=== PATIENT | female | born 1960 | race Caucasian/White ===

== ENCOUNTER → 2018-02-11 14:42 | Outpatient (CLI) | payer MEDICARE, MEDICAID, SELFPAY ==
--- NOTE | 2018-02-11 14:47 | DI.RAD.S_ITS ---
PROCEDURE: XR KNEE RT 3V INDICATIONS: BILATERAL KNEE PAIN TECHNIQUE: 3 views of the knee were acquired. COMPARISON: [facility], , KNEE 1-2 VIEWS RIGHT, 01/28/2013, 13:18. FINDINGS: Bones: No fractures or dislocations. No suspicious bony lesions. Mild to moderate tricompartment osteoarthritis is seen. No significant patellar subluxation. Soft tissues: No joint effusion. No suspicious soft tissue calcifications. IMPRESSION: No acute right knee fracture or dislocation. Mild to moderate tricompartment osteoarthritis. Dictated by: Chicho Mishra M.D. on 02/11/2018 at 15:06 Approved by: Chicho Mishra M.D. on 02/11/2018 at 15:07
--- NOTE | 2018-02-11 14:47 | DI.RAD.S_ITS ---
PROCEDURE: XR KNEE LT 3V INDICATIONS: BILATERAL KNEE PAIN TECHNIQUE: 3 views of the knee were acquired. COMPARISON: [facility], , KNEE 1-2 VIEWS RIGHT, 01/28/2013, 13:18. FINDINGS: Bones: No fractures or dislocations. No suspicious bony lesions. Mild to moderate tricompartmental osteoarthritis is seen. No significant patellar subluxation. Soft tissues: There is trace amount of joint effusion. No suspicious soft tissue calcifications. IMPRESSION: No acute left knee fracture or dislocation. Mild to moderate compartment osteoarthritis. Trace amount of joint effusion. Dictated by: Chicho Mishra M.D. on 02/11/2018 at 15:04 Approved by: Chicho Mishra M.D. on 02/11/2018 at 15:06
== END ==
PROVIDERS: Family Provider Family Medicine; PCP Family Medicine; Visit Provider Family Medicine
DX: M25.562 Pain in left knee (principal); M25.561 Pain in right knee; M17.0 Bilateral primary osteoarthritis of knee
CPT/HCPCS: 73562

== ENCOUNTER → 2018-09-17 14:18 | Outpatient (CLI) | payer MEDICARE, MEDICAID, SELFPAY ==
[2018-09-17 15:29] LABS: Add Manual Diff / Slide Review NO; Basophils Absolute Auto 100 /uL (0-100); Basophils Percent Auto 0.7 % (0-2); Eosinophils Absolute Auto 100 /uL (0-450); Eosinophils Percent Auto 1.5 % (2-4); Hematocrit 43.8 % (36-46); Hemoglobin 14.4 g/dL (12.0-16.0); Lymphocytes Absolute Auto 2400 /uL (1100-4500); Lymphocytes Percent Auto 27.6 % (25-40); Mean Corpuscular Hemoglobin 28.4 PG (26-34); Mean Corpuscular Volume 86.2 fL (80-100); Monocytes Absolute Auto 600 /uL (0-900); Monocytes Percent Auto 7.3 % (3-14); Neutrophils Absolute Auto 5500 /uL (1500-7000); Neutrophils Percent Auto 62.9 % (50-75); Platelet Count 319 X10^3/uL (150-400); Red Blood Cell Count 5.08 X10^6/uL (4.0-5.2); Red Cell Distribution Width 13.8 % (11.6-14.8); White Blood Cell Count 8.7 X10^3/uL (4.5-11.0)
[2018-09-17 16:42] LABS: TSH w/ Reflex to FT4 1.95 uIU/mL (0.47-4.68)
[2018-09-17 18:46] LABS: Alanine Aminotransferase 18 IU/L (9-52); Albumin 4.6 g/dL (3.5-5.0); Albumin Globulin Ratio 1.2 (1.0-2.8); Alkaline Phosphatase 71 U/L (38-126); Aspartate Aminotransferase 23 IU/L (14-36); BUN Creatinine Ratio 16.3 (6-22); Bilirubin Total 0.5 mg/dL (0.2-1.3); Blood Urea Nitrogen 13 mg/dL (7-17); Calcium 9.6 mg/dL (8.4-10.2); Carbon Dioxide 22 mmol/L (22-32); Chloride 105 mmol/L (98-107); Cholesterol 215 mg/dL (140-199); Estimated Glomerular Filt Rate > 60.0 mL/min (>60); Globulin 3.7 g/dL (1.7-4.1); Glucose 82 mg/dL (70-100); HDL Cholesterol 54 mg/dL (40-60); HEMOLYSIS < 15 (0-50); LDL Cholesterol Calculated 139 mg/dL (<100); Sodium 139 mmol/L (137-145); Total Protein 8.3 g/dL (6.3-8.2); Triglycerides 108 mg/dL (35-150)
[2018-09-17 19:39] LABS: LDL Cholesterol Direct 108 mg/dL (<100)
== END ==
PROVIDERS: Family Provider Family Medicine; PCP Family Medicine; Visit Provider Family Medicine
DX: E78.5 Hyperlipidemia, unspecified (principal); I10 Essential (primary) hypertension; J45.998 Other asthma
CPT/HCPCS: 36415; 80053; 80061; 83721; 84443; 85025

== ENCOUNTER → 2019-01-08 15:07 | Outpatient (CLI) | payer MEDICARE, MEDICAID, SELFPAY ==
--- NOTE | 2019-01-08 | DI.RAD.S_ITS ---
PROCEDURE: XR CERVICAL SPINE 2V OR 3V INDICATIONS: NECK PAIN HEADACHES TECHNIQUE: 3 view(s) of the cervical spine were acquired. COMPARISON: None. FINDINGS: Bones: No fractures or dislocations to the T1 level. The lateral masses of C1 appear intact on the odontoid view. No suspicious bony lesions. Endplate osteophytes indicate mild or early mid and lower cervical spine disc degeneration with well-maintained disc height. Soft tissues: No prevertebral soft tissue swelling. IMPRESSION: Endplate osteophytes indicating early mild multilevel disc degeneration. Dictated by: Wero Cage Tracy Interpreted: Manolo James MD on 01/08/2019 at 17:06 Approved by: Manolo James M.D. on 01/09/2019 at 9:03
== END ==
PROVIDERS: PCP Family Medicine; Visit Provider Family Medicine
DX: M50.320 Other cervical disc degeneration, mid-cervical region, unspecified level (principal); R51 Headache
CPT/HCPCS: 72040

== ENCOUNTER → 2020-07-27 09:09 | Outpatient (CLI) | payer MEDICARE, MEDICAID, SELFPAY ==
[2020-07-27 11:18] LABS: COVID19 -Nasal RAPID Negative (Negative)
== END ==
PROVIDERS: PCP Family Medicine; Visit Provider Specialist
DX: Z20.822 Contact with and (suspected) exposure to COVID-19 (principal)
CPT/HCPCS: 87635; C9803

== ENCOUNTER 2020-07-28 08:49 | Day surgery (SDC) | payer MEDICARE, MEDICAID, SELFPAY ==
[2020-07-28] VITALS (8 sets, daily range): BP systolic 114–177; BP diastolic 76–115; PULSE 71–101; RESP 11–18; TEMP 36–36.9; O2SAT 95–100; BMI 36.8
--- NOTE | 2020-07-28 | PATH_ITS ---
[facility] Accession Number: [id number] . 01 Material submitted: . PART A: duodenum - DUODENAL BULGE PART B: esophagus - ESOPHAGEAL BIOPSIES PART C: colon - POLYP AT APPENDOCELE OPENING PART D: colon - DESCENDING AND SIGMOID COLON RANDOM BIOPSIES . 02 Diagnosis: A. Duodenal Bulge, Biopsy: Duodenal mucosa with features of pseudolipomatosis; please see comment. Negative for active inflammation, features of sprue, dysplasia or malignancy. Additional step-sections examined. . B. Esophagus, Biopsies: Squamocolumnar junctional mucosa with specialized intestinal metaplasia, consistent with Bhagat's esophagus. Negative for dysplasia and malignancy. . C. Colon Polyp At Appendiceal Orifice, Biopsy: Colonic mucosa with prominent benign lymphoid aggregate. Negative for serrated lesion, dysplasia or malignancy. Additional step-sections examined. . D. Random Descending And Sigmoid Colon, Biopsies: Colonic mucosa with no diagnostic abnormality. Negative for active, chronic, and microscopic colitis. Negative for dysplasia and malignancy. . [facility] 08/03/2020 1232 Local . 02 Comment: A. Pseudolipomatosis is a histologic artifact secondary to the endoscopy procedure. This finding may explain the bulging appearance endoscopically. . 02 Electronically signed: . Sinan Garcia MD, PhD, Pathologist NPI- [id number] . 01 Gross description: . A. The specimen is received in formalin, labeled duodenal bulb and consists of three peacock-pink fragments of soft tissue measuring 0.3 x 0.3 x 0.2 cm in aggregate. The specimen is entirely submitted in cassette A1. B. The specimen is received in formalin, labeled esophageal and consists of multiple peacock fragments of soft tissue measuring 1.0 x 0.7 x 0.2 cm in aggregate. The specimen is entirely submitted in cassette B1. C. The specimen is received in formalin, labeled polyp at appendiceal opening and consists of multiple peacock-pink fragments of soft tissue measuring 2.0 x 1.0 x 0.6 cm in aggregate. The largest fragment is bisected. The specimen is entirely submitted in cassette C1. D. The specimen is received in formalin, labeled descending and sigmoid colon and consists of multiple peacock-pink fragments of soft tissue measuring 2.0 x 1.0 x 0.2 cm in aggregate. The specimen is entirely submitted in cassette D1. ([id number]) /MRV 07/29/2020 [facility]3 Local . 02 Pathologist provided ICD-10: K22.70, K63.5 . 02 CPT . 576772, [id number], 489692, [id number] Performed at: 01 [facility] [address] [id number] MD Lambert Mckay MD Phone: [phone] Performed at: 02 [facility] [address] [place], [place] [id number] MD Rylee Gordon MD Phone: [phone]
[2020-07-28] MEDS: LACTATED RINGERS 1,000 ML 200 ML IV (09:29)
--- NOTE | 2020-07-28 09:44 | PM.PREOP ---
Pre-operative Note COVID-19 COVID-19 status: Negative Result date/Date tested (Pos, Neg/Pending): 07/27/20 Interval Note History & Physical reviewed/Exam performed by Physician: Yes Changes to H&P: No ASA Class (for procedural sedation): II
[2020-07-28] MEDS: FLEETS ENEMA 1 EACH PR (09:55)
[2020-07-28] MEDS: ALBUTEROL 2.5 MG/3 ML NEB (ADULT) INH (09:59)
[2020-07-28] MEDS: LIDOCAINE 4% SOLN 50 ML 20 ML TOP (11:04)
--- NOTE | 2020-07-28 11:04 | P.OP.ENDO_ITS ---
Operative Date/Time/Diagnoses Date of procedure: 07/28/20 Time of procedure: 11:04 Pre-op diagnosis: History of Bhagat's esophagus. Chronic diarrhea and irritation of the colon and vague abdominal discomfort. Post-op diagnosis: same (Evidence of Bhagat's esophagus on EGD. Inflammation of the duodenum. Biopsies taken to rule out H pylori. Polyp in what appeared to be the appendiceal opening. Snared. Occasional sigmoid diverticulosis.) Procedure & Clinicians Study performed: EGD with cold biopsy. Colonoscopy with hot snare polypectomy Same procedure as scheduled: Yes Indications: Surveillance of Bhagat's esophagus. Chronic GI tract symptoms. Surgeon: Remigio Pelayo Procedure Notes SCOAP/Timeout: Performed Procedure in detail: The patient had topical anesthetic applied to oropharynx. She was placed in left lateral decubitus position and underwent IV sedation directed by the surgeon consisting of fentanyl and Versed. A bite block was inserted and the scope was advanced through it into the esophagus. The esophagus was unremarkable. GE junction was noted at 35 cm from the incisors. There was visible evidence of Bhagat's esophagus with tongues of red tissue extending well above the GE junction.. The stomach insufflated well. There were no lesions seen in the body, antrum or at the incisura. The pyloric channel was narrowed but patent.. The duodenum was remarkable for significant inflammation of the duodenal bulb. It was otherwise normal To the 4th part. Biopsies were taken in the duodenal bulb to rule out H pylori. The scope was brought back into the stomach and retroflexed. The proximal stomach was normal in appearance. There was no hiatal hernia.. The scope was straightened and brought out through the esophagus again. Biopsies were taken at the GE junction. No other lesions were seen. The scope was removed and the patient tolerated the procedure well. The patient was repositioned and given additional sedation. Digital exam was normal without mass.. The scope was inserted and advanced through the rectum into the sigmoid, descending, transverse, and ascending colon. Pressure was applied in a stiffener inserted in order to reach the cecum.. The cecum was r eached identified by the ileocecal valve and the appendiceal opening. I had a great deal of difficulty distending the cecum. There was a polyp noted at the appendiceal opening and this was caught snared and removed. It was large enough that I could not suction it through the suction channel even on high suction. Therefore I split it in half with a snare and retrieved the pieces. Unfortunately I could not get back into the cecum after removing this polyp in order to carefully examine the base. The scope was gradually brought out. No other Polyps were found. I did do random biopsies of the sigmoid and descending colon because of her history of chronic diarrhea. Specimens were also sent for culture, O and P, and a GI panel. The scope ultimately was retroflexed in the rectum. The appearance was remarkable for small hemorrhoids without ulceration.. The scope was removed and the patient tolerated the procedure well. The prep was good except for a small area of the ascending colon where there was some adherent stool. Even so I would have been able to see polyps greater than a cm. Due to the polyp at the appendiceal opening and the need to confirm complete removal and no regrowth I would recommend a repeat colonoscopy in 1 year. Scope withdrawal time: 6-1/2 minutes (9.5 total) Sedation minutes: 45 Findings: Bhagat's esophagus and polyp (Appendiceal opening) Specimen(s): other (Cecal Polyp, random biopsies of the sigmoid and descending colon. Biopsies at the GE junction. Duodenal bulb biopsies.) Complications: none Post-procedure Recommendations: Colonscopy in 1 year and EGD in 3 years Follow up: as needed Disposition: PACU
[2020-07-28] MEDS: fentaNYL 250 MCG/5 ML INJ IV (11:05)
[2020-07-28] MEDS: MIDAZOLAM 5 MG/5 ML VIAL IV (11:05)
[2020-07-28] MEDS: ONDANSETRON 4 MG/2 ML INJ IV (11:06)
[2020-07-28] MEDS: diphenhydrAMINE 50 MG/ML VIAL 25 MG IV (11:06)
[2020-07-28 13:50] LABS: Adenovirus F 40/41 Not Detected (Not Detect); Astrovirus Not Detected (Not Detect); Campylobacter Not Detected (Not Detect); Clostridium difficile toxin AB Not Detected (Not Detect); Cryptosporidium Not Detected (Not Detect); Cyclospora cayetanensis Not Detected (Not Detect); Entamoeba histolytica Not Detected (Not Detect); Enteroaggregative E.coli Not Detected (Not Detect); Enteropathogenic E.coli Not Detected (Not Detect); Enterotoxigenic E.coli It/st Not Detected (Not Detect); Giardia lamblia Not Detected (Not Detect); Norovirus GI/GII Not Detected (Not Detect); Plesiomonsa shigelloides Not Detected (Not Detect); Rotavirus A Not Detected (Not Detect); Salmonella Not Detected (Not Detect); Sapovirus Not Detected (Not Detect); Shiga-like toxin-prod E.coli Not Detected (Not Detect); Shigella/Enteroinvasive E.coli Not Detected (Not Detect); Vibrio Not Detected (Not Detect); Vibrio cholerae Not Detected (Not Detect); Yersinia enterocolitica Not Detected (Not Detect)
== END 2020-07-28 11:48 | disposition home or self-care (01) ==
PROVIDERS: PCP Family Medicine; Referring Provider Family Medicine; Visit Provider Specialist
PROC: 0DJ08ZZ Inspection of Upper Intestinal Tract, Via Natural or Artificial Opening Endoscopic (ICD-10-PCS; CPT 43235; principal; 2020-07-28 10:00)
PROC: 0DJD8ZZ Inspection of Lower Intestinal Tract, Via Natural or Artificial Opening Endoscopic (ICD-10-PCS; CPT 45378; 2020-07-28 10:00)
DX: K52.9 Noninfective gastroenteritis and colitis, unspecified (principal); Z87.19 Personal history of other diseases of the digestive system; K64.8 Other hemorrhoids; K22.70 Barrett's esophagus without dysplasia; K63.5 Polyp of colon
CPT/HCPCS: 43239; 45385; 87507; 99152; 99153; J1200; J2250; J2405; J3010; J7613

== ENCOUNTER → 2020-11-22 11:42 | Outpatient (CLI) | payer MEDICARE, MEDICAID, SELFPAY ==
--- NOTE | 2020-11-22 11:44 | DI.US.S_ITS ---
PROCEDURE: US ABDOMEN COMPLETE INDICATIONS: RUQ PAIN TECHNIQUE: Real-time scanning was performed of the abdominal and retroperitoneal organs, with image documentation. COMPARISON: None. FINDINGS: Liver: The liver demonstrates prominent size. The liver demonstrates generalized mildly increased echogenicity. This decreases ultrasound sensitivity for detection of hepatic masses. Gallbladder: Removed Biliary ducts: Intrahepatic bile ducts are non-dilated. Extrahepatic bile duct caliber measures 7 mm. Normal is 6-7 mm or less in diameter, or 10 mm or less post-cholecystectomy. Pancreas: Not well seen. Spleen: Spleen is normal in size and homogeneous in echotexture. Kidneys: Kidneys are normal in size and echotexture. Right kidney measures 10.1 cm long; left kidney measures 9.9 cm long. No hydronephrosis or nephrolithiasis. No solid masses. The renal cortex measures within normal limits for thickness. Aorta: The proximal aorta demonstrates normal caliber. The mid and distal aorta are not well seen. Iliacs: Not seen, obscured by overlying bowel gas. IVC: Intrahepatic inferior vena cava is patent. Miscellaneous: No free abdominal fluid. This study is limited by body habitus and bowel gas. IMPRESSION: Status post cholecystectomy, without biliary dilatation. Fatty liver infiltration. Dictated by: Gabe Pandey M.D. on 11/22/2020 at 12:22 Approved by: Gabe Pandey M.D. on 11/22/2020 at 12:24
== END ==
PROVIDERS: PCP Family Medicine; Referring Provider Family Medicine; Visit Provider Family Medicine
DX: R10.11 Right upper quadrant pain (principal); K76.0 Fatty (change of) liver, not elsewhere classified; Z90.49 Acquired absence of other specified parts of digestive tract
CPT/HCPCS: 76700

== ENCOUNTER → 2021-03-09 13:03 | Outpatient (CLI) | payer MEDICARE, MEDICAID, SELFPAY ==
--- NOTE | 2021-03-09 | DI.RAD.S_ITS ---
PROCEDURE: XR FOOT RT MIN 3V INDICATIONS: Pain in right foot TECHNIQUE: 3 views of the foot were acquired. COMPARISON: None. FINDINGS: Bones: No fractures or dislocations. Mild 1st MTP joint osteoarthritic changes are noted. Mild 2nd through 5th DIP joint osteoarthritic changes also seen. No suspicious bony lesions. Well-defined plantar calcaneal enthesophyte is seen. Soft tissues: No tibiotalar joint effusion. Achilles tendon appears normal. IMPRESSION: Mild forefoot joint osteoarthritis as above. Small plantar calcaneal enthesophyte. No fracture or dislocation. Dictated by: Chicho Mishra M.D. on 03/09/2021 at 17:29 Approved by: Chicho Mishra M.D. on 03/09/2021 at 17:30
--- NOTE | 2021-03-09 | DI.RAD.S_ITS ---
PROCEDURE: XR ANKLE RT MIN 3V INDICATIONS: Pain in right foot.. TECHNIQUE: 3 views of the ankle were acquired. COMPARISON: None. FINDINGS: Bones: No fractures or dislocations. Ankle mortise is normally aligned. No suspicious bony lesions. Plantar calcaneal bone spur. Soft tissues: No tibiotalar joint effusion. Achilles tendon appears normal. IMPRESSION: No fracture. No acute osseous lesion. If symptoms and/or clinical suspicion for pathology persists, further assessment with repeat radiographs (7-10 days) or advanced imaging (e.g. CT, MRI or bone scan) should be considered. Dictated by: Shellie Dominguez MD, PhD on 03/09/2021 at 17:18 Approved by: Shellie Dominguez MD, PhD on 03/09/2021 at 17:19
== END ==
PROVIDERS: PCP Family Medicine; Referring Provider Family Medicine; Visit Provider Family Medicine
DX: M79.671 Pain in right foot (principal); M19.071 Primary osteoarthritis, right ankle and foot; M77.31 Calcaneal spur, right foot
CPT/HCPCS: 73610; 73630